=== PATIENT | male | born 1935 | race Caucasian/White ===

== ENCOUNTER → 2020-10-07 16:55 | Outpatient (CLI) | payer MEDICARE, BC ==
[2020-10-07 18:18] LABS: BASOPHILS 1.3 % (0-2); EOSINOPHILS 4.2 % (0-7); HEMATOCRIT 30.9 % (42.0-54.0); HEMOGLOBIN 10.2 g/dL (13.5-17.5); LYMPHOCYTES 15.5 % (15-50); MCH 31.1 pg (26.0-34.0); PLATELET COUNT 264 10x3/uL (130-400); RBC 3.28 10x6/uL (4.20-6.10); WBC 4.7 10x3/uL (4.8-10.8)
[2020-10-07 18:24] LABS: INR 3.43 (0.85-1.17); PROTIME 32.2 SECONDS (11.6-15.0)
[2020-10-07 19:02] LABS: ALBUMIN 2.6 g/dL (3.4-5.0); ALKALINE PHOSPHATASE 29 U/L (30-120); ALT (SGPT) 31 U/L (10-68); BILIRUBIN - TOTAL 0.79 mg/dL (0.2-1.3); CALC OSMOLALITY 288 mosm/kg (275-300); CALCIUM 8.8 mg/dL (8.5-10.1); CARBON DIOXIDE 30.2 mmol/L (21.0-32.0); CHLORIDE - SERUM 108 mmol/L (98-107); CHOL - HDL RATIO 3.5 ratio (2.3-4.9); CHOLESTEROL, TOTAL 84 mg/dL (0-200); GLUCOSE 87 mg/dL (74-106); HDL CHOLESTEROL 24 mg/dL (32-96); LDL CHOLESTEROL 34 mg/dL (0-100); LDL-HDL RATIO 1.4 ratio (1.5-3.5); POTASSIUM - SERUM 4.3 mmol/L (3.5-5.1); PROTEIN - SERUM 5.9 g/dL (6.4-8.2); SODIUM 144 mmol/L (136-145); TRIGLYCERIDE 132 mg/dL (30-200); UREA NITROGEN 22 mg/dL (7-18); eGFR NON AFRICAN AMERICAN 75 mL/min (90-120)
== END | disposition home or self-care (01) ==
LOC: D.LABREF 16:55
PROVIDERS: ATTEND Family Medicine
DX: I10 Essential (primary) hypertension (principal)

== ENCOUNTER → 2020-10-10 17:31 | Outpatient (CLI) | payer MEDICARE, BC ==
[2020-10-10 18:41] LABS: INR 2.26 (0.85-1.17); PROTIME 23.2 SECONDS (11.6-15.0)
== END | disposition home or self-care (01) ==
LOC: D.LABREF 17:31
PROVIDERS: ATTEND Family Medicine
DX: Z79.01 Long term (current) use of anticoagulants (principal)

== ENCOUNTER → 2020-10-12 20:07 | Outpatient (CLI) | payer MEDICARE, BC ==
[2020-10-12 20:22] LABS: BASOPHILS 0.4 % (0-2); EOSINOPHILS 0.2 % (0-7); HEMATOCRIT 34.8 % (42.0-54.0); HEMOGLOBIN 11.1 g/dL (13.5-17.5); LYMPHOCYTES 3.2 % (15-50); MCH 30.6 pg (26.0-34.0); MCHC 32.1 g/dL (31.0-37.0); MCV 95.6 fL (80.0-100.0); MEAN PLATELET VOLUME 7.8 fL (7.4-10.4); MONOCYTES 6.3 % (2-11); NEUTROPHILS 89.9 % (40-80); RBC 3.64 10x6/uL (4.20-6.10); RDW 15.6 % (11.5-14.5); WBC 16.8 10x3/uL (4.8-10.8)
[2020-10-12 20:23] LABS: PLATELET COUNT 425 10x3/uL (130-400)
[2020-10-12 20:39] LABS: ALBUMIN 2.6 g/dL (3.4-5.0); ANION GAP 13.9 mmol/L (8-16); BILIRUBIN - TOTAL 0.88 mg/dL (0.2-1.3); CALCIUM 8.6 mg/dL (8.5-10.1); CARBON DIOXIDE 27.5 mmol/L (21.0-32.0); CREATININE - SERUM 1.9 mg/dL (0.6-1.3); POTASSIUM - SERUM 4.4 mmol/L (3.5-5.1); PROTEIN - SERUM 6.4 g/dL (6.4-8.2)
== END | disposition home or self-care (01) ==
LOC: D.LABREF 20:07
PROVIDERS: ATTEND Family Medicine
DX: I25.10 Atherosclerotic heart disease of native coronary artery without angina pectoris (principal)

== ENCOUNTER → 2020-10-13 16:22 | Outpatient (CLI) | payer MEDICARE, BC ==
[2020-10-13 18:36] LABS: BILIRUBIN NEGATIVE (NEGATIVE); KETONE NEGATIVE mg/dL (< 1+); NITRITE NEGATIVE (NEGATIVE); PH 6.5 (5.0-8.0); UROBILINOGEN NORMAL mg/dL (< 2); WHITE CELLS - URINE <1 HPF (0-1)
== END | disposition home or self-care (01) ==
LOC: D.LABREF 16:22
PROVIDERS: ATTEND Family Medicine
DX: E86.0 Dehydration (principal)

== ENCOUNTER → 2020-10-14 17:17 | Outpatient (CLI) | payer MEDICARE, BC ==
[2020-10-14 19:27] LABS: BASOPHILS 0.1 % (0-2); EOSINOPHILS 1.1 % (0-7); HEMATOCRIT 29.1 % (42.0-54.0); HEMOGLOBIN 9.3 g/dL (13.5-17.5); LYMPHOCYTES 2.8 % (15-50); MCH 30.7 pg (26.0-34.0); MCHC 32.1 g/dL (31.0-37.0); MCV 95.7 fL (80.0-100.0); MONOCYTES 4.2 % (2-11); NEUTROPHILS 91.8 % (40-80); PLATELET COUNT 366 10x3/uL (130-400); RBC 3.04 10x6/uL (4.20-6.10); RDW 15.6 % (11.5-14.5)
[2020-10-14 19:31] LABS: WBC 12.2 10x3/uL (4.8-10.8)
[2020-10-14 19:47] LABS: ANION GAP 12.7 mmol/L (8-16); CALCIUM 8.6 mg/dL (8.5-10.1); CARBON DIOXIDE 27.9 mmol/L (21.0-32.0)
[2020-10-14 19:48] LABS: CREATININE - SERUM 1.1 mg/dL (0.6-1.3); POTASSIUM - SERUM 3.6 mmol/L (3.5-5.1)
== END | disposition home or self-care (01) ==
LOC: D.LABREF 17:17
PROVIDERS: ATTEND Family Medicine
DX: I10 Essential (primary) hypertension (principal)

== ENCOUNTER → 2020-10-17 18:09 | Outpatient (CLI) | payer MEDICARE, BC ==
[2020-10-17 18:53] LABS: INR 5.95 (0.85-1.17); PROTIME 49.7 SECONDS (11.6-15.0)
== END | disposition home or self-care (01) ==
LOC: D.LABREF 18:09
PROVIDERS: ATTEND Family Medicine
DX: Z79.01 Long term (current) use of anticoagulants (principal)

== ENCOUNTER → 2020-10-18 20:42 | Outpatient (CLI) | payer MEDICARE, BC ==
[2020-10-18 21:10] LABS: PROTIME 47.6 SECONDS (11.6-15.0)
[2020-10-18 21:45] LABS: INR 5.63 (0.85-1.17)
== END | disposition home or self-care (01) ==
LOC: D.LABREF 20:42
PROVIDERS: ATTEND Family Medicine
DX: Z79.01 Long term (current) use of anticoagulants (principal)

== ENCOUNTER → 2020-10-19 17:58 | Outpatient (CLI) | payer MEDICARE, BC ==
[2020-10-19 19:34] LABS: INR 4.92 (0.85-1.17); PROTIME 42.8 SECONDS (11.6-15.0)
== END | disposition home or self-care (01) ==
LOC: D.LABREF 17:58
PROVIDERS: ATTEND Family Medicine
DX: Z79.01 Long term (current) use of anticoagulants (principal)

== ENCOUNTER → 2020-10-20 17:46 | Outpatient (CLI) | payer MEDICARE, BC ==
[2020-10-20 19:48] LABS: INR 4.2 (0.85-1.17); PROTIME 37.7 SECONDS (11.6-15.0)
== END | disposition home or self-care (01) ==
LOC: D.LABREF 17:46
PROVIDERS: ATTEND Family Medicine
DX: Z79.01 Long term (current) use of anticoagulants (principal)

== ENCOUNTER → 2020-10-21 16:41 | Outpatient (CLI) | payer MEDICARE, BC ==
[2020-10-21 18:09] LABS: BASOPHILS 0.6 % (0-2); EOSINOPHILS 4.1 % (0-7); HEMATOCRIT 33.8 % (42.0-54.0); HEMOGLOBIN 10.8 g/dL (13.5-17.5); LYMPHOCYTES 11.4 % (15-50); MCH 30.7 pg (26.0-34.0); MCHC 31.9 g/dL (31.0-37.0); MEAN PLATELET VOLUME 8.7 fL (7.4-10.4); MONOCYTES 5.5 % (2-11); NEUTROPHILS 78.4 % (40-80); PLATELET COUNT 345 10x3/uL (130-400); RBC 3.52 10x6/uL (4.20-6.10); RDW 15.3 % (11.5-14.5); WBC 7.8 10x3/uL (4.8-10.8)
[2020-10-21 18:18] LABS: ALBUMIN 2.1 g/dL (3.4-5.0); ALKALINE PHOSPHATASE 92 U/L (30-120); ALT (SGPT) 41 U/L (10-68); BILIRUBIN - TOTAL 0.47 mg/dL (0.2-1.3); CALCIUM 9.5 mg/dL (8.5-10.1); CARBON DIOXIDE 32.4 mmol/L (21.0-32.0); CREATININE - SERUM 0.9 mg/dL (0.6-1.3); GLUCOSE 105 mg/dL (74-106); POTASSIUM - SERUM 3.4 mmol/L (3.5-5.1); PROTEIN - SERUM 5.9 g/dL (6.4-8.2); UREA NITROGEN 34 mg/dL (7-18); eGFR NON AFRICAN AMERICAN 85 mL/min (90-120)
[2020-10-21 18:19] LABS: CALC OSMOLALITY 324 mosm/kg (275-300)
[2020-10-21 18:25] LABS: INR 2.32 (0.85-1.17); PROTIME 23.7 SECONDS (11.6-15.0)
[2020-10-21 18:27] LABS: CHLORIDE - SERUM 123 mmol/L (98-107); SODIUM 160 mmol/L (136-145)
== END | disposition home or self-care (01) ==
LOC: D.LABREF 16:41
PROVIDERS: ATTEND Family Medicine
DX: Z79.01 Long term (current) use of anticoagulants (principal)

== ENCOUNTER → 2020-10-24 18:52 | Outpatient (CLI) | payer MEDICARE, BC | END | disposition home or self-care (01) | LOC: D.LABREF 18:52 | PROVIDERS: ATTEND Family Medicine | DX: Z79.01 Long term (current) use of anticoagulants (principal) ==

== ENCOUNTER → 2020-10-27 17:35 | Outpatient (CLI) | payer MEDICARE, BC ==
[2020-10-27 18:27] LABS: BASOPHILS 1.1 % (0-2); EOSINOPHILS 4.2 % (0-7); HEMATOCRIT 26.8 % (42.0-54.0); HEMOGLOBIN 8.8 g/dL (13.5-17.5); LYMPHOCYTES 11.4 % (15-50); MCH 30.7 pg (26.0-34.0); MCHC 32.7 g/dL (31.0-37.0); MCV 93.8 fL (80.0-100.0); MEAN PLATELET VOLUME 9.4 fL (7.4-10.4); MONOCYTES 6.5 % (2-11); NEUTROPHILS 76.8 % (40-80); RBC 2.86 10x6/uL (4.20-6.10); RDW 14.7 % (11.5-14.5); WBC 6.4 10x3/uL (4.8-10.8)
[2020-10-27 18:30] LABS: CALC OSMOLALITY 295 mosm/kg (275-300); CALCIUM 8.1 mg/dL (8.5-10.1); CARBON DIOXIDE 24.4 mmol/L (21.0-32.0); CREATININE - SERUM 0.7 mg/dL (0.6-1.3); GLUCOSE 75 mg/dL (74-106); SODIUM 149 mmol/L (136-145); UREA NITROGEN 16 mg/dL (7-18); eGFR NON AFRICAN AMERICAN > 90 mL/min (90-120)
[2020-10-27 18:38] LABS: PLATELET COUNT 242 10x3/uL (130-400)
[2020-10-27 19:18] LABS: CHLORIDE - SERUM 117 mmol/L (98-107)
== END | disposition home or self-care (01) ==
LOC: D.LABREF 17:35
PROVIDERS: ATTEND Family Medicine
DX: I10 Essential (primary) hypertension (principal)